=== PATIENT | female | born 2000 ===

== ENCOUNTER → 2023-03-24 | Outpatient (CLI) | payer OTHER ==
[2023-03-24 11:40] LABS: Bun/Creatinine Ratio 12.4 (12.0-20.0); Calcium, Blood 9.2 mg/dL (8.5-10.1); Creatinine, Blood 0.97 mg/dL (0.40-1.00)
== END | disposition home or self-care (01) ==
LOC: LAB 11:18 → LAB SHORT 11:18
PROVIDERS: Chiropractor
DX: S22.20XA Unspecified fracture of sternum, initial encounter for closed fracture (principal)
CPT/HCPCS: 80048; 84484